=== PATIENT | male | born 1970 | race Caucasian/White ===

== ENCOUNTER 2020-12-11 18:43 | Emergency (ER) | payer OTHER, SELFPAY ==
[2020-12-11 20:12] VITALS: BP 125/82; PULSE 106; RESP 18; TEMP 37.1; O2SAT 97; BMI 29.0
[2020-12-11 20:29] LABS: Amphetamine Screen Urine Not Detected (Not Detect); Barbiturates, Urine Not Detected (Not Detect); Benzodiazepines Screen Urine Not Detected (Not Detect); Cannabinoid Screen Urine Not Detected (Not Detect); Cocaine Screen Urine POSITIVE (Not Detect); Fentanyl, urine POSITIVE (Not Detect); Opiate Screen Urine POSITIVE (Not Detect); Phencyclidine Screen Urine Not Detected (Not Detect)
--- NOTE | 2020-12-11 22:25 | ED_ITS ---
HPI - General Adult General Chief complaint: General Medical Stated complaint: see stated Time Seen by Provider: 12/11/20 21:49 Source: patient Mode of arrival: ambulatory Limitations: no limitations History of Present Illness HPI narrative: 50 y/o male with history of polysubstance abuse on suboxone who just got out of senior living today presents to the ER for medical clearance to be accepted to a program for ongoing treatment. He admits to doing a bag once he got out of senior living today because he was not dosed his suboxone. He has no other medical problems and is not on any other medications. He denies any chest pain, SOB, abdominal pain, N/V/D. complaint: medical clearance Onset (ago): hour(s) Associated symptoms: denies other symptoms Treatments prior to arrival: none Related Data Allergies Allergy/AdvReac Type Severity Reaction Status Date / Time No Known Allergies Allergy Verified 12/11/20 20:11 Review of Systems Constitutional: Constitutional: Denies chills and Denies fever(s) Eyes: Eyes: Reports no additional eye complaints ENT: Reports Normal hearing present Cardiovascular: Cardiovascular: Denies chest pain and Denies dyspnea Respiratory: Respiratory: Denies chest congestion and Denies dyspnea Gastrointestinal: Gastrointestinal: Denies abdominal pain, Denies nausea and Denies vomiting Musculoskeletal: Musculoskeletal: Denies myalgias Neurologic: Reports Normal hearing present [facility] Social History Social History Advance Directives: No Physical Exam Vital Signs: Vital Signs: Last Vital Signs Temp 98.7 F 12/11/20 20:12 Pulse 106 H 12/11/20 20:12 Resp 18 12/11/20 20:12 BP 125/82 12/11/20 20:12 Pulse Ox 97 12/11/20 20:12 Body Mass Index 29.0 Appearance: Alert. Oriented X3. No acute distress. Eyes: Pupils equal, round and reactive to light. ENT: Pharynx normal. Neck: Normal inspection. Neck supple. CVS: Normal heart rate and rhythm. Pulses normal. Respiratory: No respiratory distress. Breath sounds normal. Abdomen: Soft and nontender. +BS x4 Skin: Skin warm and dry. Normal skin color. Normal skin turgor. No rashes. Extremities: No lower extremity edema. Neuro: Oriented X 3. No motor deficit. No sensory deficit. Neuro: Cranial nerves: Yes Normal hearing present Course Course Course Narrative: 50 y/o male with history of longstanding substance abuse out of senior living on [place] today coming in for medical clearance. UTOX positive for fentanyl, opiates, cocaine. He admits to using 1 bag of heroin today. He called the program where he is hoping to go and they are requesting medical clearance with labs and EKG which have been ordered. Reevaluation(s) Reevaluation #1: Went to perform labs and EKG and patient eloped from the ER. Medical Decision Making Lab Data Labs: Lab Results 12/11/20 Range/Units 19:46 Urine Opiates Screen POSITIVE H (Not Detect) Urine Fentanyl Screen POSITIVE H (Not Detect) Ur Barbiturates Screen Not Detected (Not Detect) Ur Phencyclidine Scrn Not Detected (Not Detect) Ur Amphetamines Screen Not Detected (Not Detect) U Benzodiazepines Scrn Not Detected (Not Detect) Urine Cocaine Screen POSITIVE H (Not Detect) U Marijuana (THC) Screen Not Detected (Not Detect) Discharge Plan Discharge Clinical Impression: Polysubstance abuse Patient Disposition: Elopement Discharge Date/Time: 12/11/20 22:50
--- NOTE | 2020-12-11 22:55 | PC.NURSE ---
pt not seen in the results pending room at 2230 and rechecked at this time and pt is not in the building.
--- NOTE | 2020-12-11 22:57 | PC.NURSE ---
pt was made aware that he is going to have a ekg and labs to be drawn, pt was talking and mentioned he is going to a place to wait till a for a rehab is available to him. pt stated he is out of [facility] on bail and this conversation was just before pt left.
== END 2020-12-11 22:50 | disposition left against medical advice (07) ==
PROVIDERS: Emergency Provider Emergency Medicine
DX: Z02.2 Encounter for examination for admission to residential institution (principal); F19.10 Other psychoactive substance abuse, uncomplicated; F11.20 Opioid dependence, uncomplicated
CPT/HCPCS: 80307; 99282; 99283